=== PATIENT | female | born 1990 | race Two or more races ===

== ENCOUNTER 2017-11-13 01:38 | Inpatient (IN) | payer OTHER ==
[~2017-11-13] VITALS: Ht 157.5 cm; Wt 54.4 kg
== END 2017-12-01 13:34 | disposition home or self-care (01) | DRG 446 ==
LOC: ER 01:38 → SURH 10:38
PROC: BF37ZZZ Magnetic Resonance Imaging (MRI) of Pancreas (ICD-10-PCS; 2017-11-13)
PROC: BW40ZZZ Ultrasonography of Abdomen (ICD-10-PCS; 2017-11-13)
PROC: CF1C1ZZ Planar Nuclear Medicine Imaging of Hepatobiliary System, All using Technetium 99m (Tc-99m) (ICD-10-PCS; 2017-11-14)
PROC: BW40ZZZ Ultrasonography of Abdomen (ICD-10-PCS; 2017-11-17)
PROC: 0DB68ZX Excision of Stomach, Via Natural or Artificial Opening Endoscopic, Diagnostic (ICD-10-PCS; principal; 2017-11-18)
PROC: CF1C1ZZ Planar Nuclear Medicine Imaging of Hepatobiliary System, All using Technetium 99m (Tc-99m) (ICD-10-PCS; 2017-11-21)
PROC: BW25Y0Z Computerized Tomography (CT Scan) of Chest, Abdomen and Pelvis using Other Contrast, Unenhanced and Enhanced (ICD-10-PCS; 2017-11-24)
PROC: 0FC98ZZ Extirpation of Matter from Common Bile Duct, Via Natural or Artificial Opening Endoscopic (ICD-10-PCS; 2017-11-28)
PROC: 0F798ZZ Dilation of Common Bile Duct, Via Natural or Artificial Opening Endoscopic (ICD-10-PCS; 2017-11-28)
DX: K80.51 Calculus of bile duct without cholangitis or cholecystitis with obstruction (principal); K29.00 Acute gastritis without bleeding; E86.0 Dehydration

== ENCOUNTER → 2018-09-12 | Outpatient (CLI) | payer OTHER | END | disposition home or self-care (01) | LOC: PRENATAL 09:00 | DX: O99.89 Other specified diseases and conditions complicating pregnancy, childbirth and the puerperium (principal) ==

== ENCOUNTER 2018-11-21 13:03 | Outpatient (CLI) | payer OTHER | END 2018-11-21 14:00 | disposition home or self-care (01) | LOC: PRENATAL 13:03 | DX: O98.912 Unspecified maternal infectious and parasitic disease complicating pregnancy, second trimester (principal); O26.842 Uterine size-date discrepancy, second trimester ==

== ENCOUNTER 2018-12-27 13:34 | Inpatient (IN) | payer OTHER ==
[~2018-12-27] VITALS: Ht 157.5 cm; Wt 64.9 kg
[2018-12-27] MEDS ORDERED: IRON325 MG PO (16:54)
[2018-12-27] MEDS ORDERED: PRENATAL CAPLE1 EAC1 PO (16:54)
[2018-12-28] MEDS ORDERED: AMPICILLIN TRI500 MG PO (18:16)
== END 2018-12-28 19:14 | disposition home or self-care (01) | DRG 833 ==
LOC: LDR 13:34
PROVIDERS: ADMIT Obstetrics & Gynecology
PROC: BY4FZZZ Ultrasonography of Third Trimester, Single Fetus (ICD-10-PCS; principal; 2018-12-27)
PROC: 4A1HXCZ Monitoring of Products of Conception, Cardiac Rate, External Approach (ICD-10-PCS; 2018-12-27)
DX: O26.843 Uterine size-date discrepancy, third trimester (principal); O60.03 Preterm labor without delivery, third trimester; O36.8130 Decreased fetal movements, third trimester, not applicable or unspecified; O23.33 Infections of other parts of urinary tract in pregnancy, third trimester

== ENCOUNTER 2019-01-05 21:33 | Inpatient (IN) | payer OTHER ==
[~2019-01-05] VITALS: Ht 157.5 cm; Wt 63.5 kg
[~2019-01-05 21:33] MED LIST: AMPICILLIN TRI500 MG PO; IRON325 MG PO; PRENATAL CAPLE1 EAC1 PO
== END 2019-01-08 13:39 | disposition home or self-care (01) | DRG 768 ==
LOC: OB/GYN 21:33 → LDR 21:33 → OB/GYN 01-06 01:34
PROVIDERS: ADMIT Obstetrics & Gynecology
PROC: 4A1HXCZ Monitoring of Products of Conception, Cardiac Rate, External Approach (ICD-10-PCS; 2019-01-05)
PROC: 10E0XZZ Delivery of Products of Conception, External Approach (ICD-10-PCS; principal; 2019-01-06)
PROC: 0DQR0ZZ Repair Anal Sphincter, Open Approach (ICD-10-PCS; 2019-01-06)
DX: O70.21 Third degree perineal laceration during delivery, IIIa (principal); Z37.0 Single live birth; Z3A.37 37 weeks gestation of pregnancy

== ENCOUNTER 2022-06-11 09:14 | Outpatient (CLI) | payer OTHER | END 2022-06-11 10:14 | disposition home or self-care (01) | LOC: PRENATAL 09:14 | PROVIDERS: ATTEND Obstetrics & Gynecology Maternal & Fetal Medicine | DX: O36.80X0 Pregnancy with inconclusive fetal viability, not applicable or unspecified (principal); Z3A.12 12 weeks gestation of pregnancy ==

== ENCOUNTER 2022-08-09 13:15 | Outpatient (CLI) | payer OTHER | END 2022-08-09 14:43 | disposition home or self-care (01) | LOC: PRENATAL 13:15 | PROVIDERS: ATTEND Obstetrics & Gynecology Maternal & Fetal Medicine | DX: O35.9XX0 Maternal care for (suspected) fetal abnormality and damage, unspecified, not applicable or unspecified (principal); O35.3XX0 Maternal care for (suspected) damage to fetus from viral disease in mother, not applicable or unspecified ==

== ENCOUNTER 2022-11-04 10:28 | Outpatient (CLI) | payer OTHER | END 2022-11-04 12:03 | disposition home or self-care (01) | LOC: PRENATAL 10:28 | PROVIDERS: ATTEND Obstetrics & Gynecology Maternal & Fetal Medicine | DX: O26.849 Uterine size-date discrepancy, unspecified trimester (principal); O36.8199 Decreased fetal movements, unspecified trimester, other fetus; Z3A.33 33 weeks gestation of pregnancy ==

== ENCOUNTER 2022-12-14 19:00 | Outpatient (CLI) | payer OTHER | END 2022-12-14 20:14 | disposition still patient (30) | LOC: NST 19:00 | PROVIDERS: ATTEND Obstetrics & Gynecology | DX: O26.893 Other specified pregnancy related conditions, third trimester (principal); Z3A.38 38 weeks gestation of pregnancy ==

== ENCOUNTER 2022-12-14 20:26 | Inpatient (IN) | payer OTHER ==
[~2022-12-14] VITALS: Ht 157.5 cm; Wt 72.6 kg
[2022-12-14 20:47] LABS: HEMATOCRIT 35.4 % (36.0-45.00); MEAN CELL VOLUME 86.2 fL (80.00-100.00); MEAN CORPUSCULAR HEMOGLOBIN 29.2 pg (27.00-32.0); MEAN CORPUSCULAR HGB CONC 33.9 g/dl (32.0-36.0); PLATELET COUNT 341 K/uL (150-450); RED CELL DISTRIBUTION WIDTH 15.3 % (11.5-14.5); URINE APPEARANCE Clear; URINE BILIRRUBIN Negative (NEGATIVE); URINE BLOOD Trace; URINE COLOR Yellow; URINE GLUCOSE Negative (NEGATIVE); URINE LEUKOCYTE Negative; URINE NITRATE Negative; URINE PROTEIN Negative (NEGATIVE)
[2022-12-14 20:48] LABS: URINE EPITHELIAL CELLS 2.7 uL (0.0-38.8); URINE WBC 6.7 uL (0.0-23.2)
[2022-12-14 20:59] LABS: URINE RBC 0.8 uL (0.0-20.8)
[2022-12-14 21:05] LABS: INR 0.95; PARTIAL THROMBOPLASTIN TIME 27.8 SECONDS (22.0-34.0)
[2022-12-14 21:10] LABS: ALBUMIN 2.7 gm/dL (3.4-5.0); BILIRUBIN TOTAL 0.25 mg/dL (0.3-1.2); CALCIUM 8.9 mg/dL (8.5-10.1); CREATININE SERUM 0.66 mg/dL (0.55-1.02); GFR 104.46; GLOBULINA 3.6 G/DL (2.4-3.5); POTASSIUM 4.32 mEq/L (3.5-5.1); TOTAL PROTEIN 6.3 gm/dL (6.4-8.2)
[2022-12-15 11:51] LABS: HEMATOCRIT 33.2 % (36.0-45.00); HEMOGLOBIN 11.4 g/dL (12.0-15.00); MEAN CELL VOLUME 85.1 fL (80.00-100.00); MEAN CORPUSCULAR HEMOGLOBIN 29.3 pg (27.00-32.0); MEAN CORPUSCULAR HGB CONC 34.5 g/dl (32.0-36.0); PLATELET COUNT 300 K/uL (150-450)
== END 2022-12-16 12:49 | disposition home or self-care (01) | DRG 807 ==
LOC: LDR 20:26 → OB/GYN 20:26 → LDR 12-23 14:52
PROVIDERS: Obstetrics & Gynecology; ADMIT Student in an Organized Health Care Education/Training Program; ATTEND Student in an Organized Health Care Education/Training Program
PROC: 10E0XZZ Delivery of Products of Conception, External Approach (ICD-10-PCS; principal; 2022-12-14)
PROC: 0HQ9XZZ Repair Perineum Skin, External Approach (ICD-10-PCS; 2022-12-14)
PROC: 4A1HXCZ Monitoring of Products of Conception, Cardiac Rate, External Approach (ICD-10-PCS; 2022-12-14)
DX: O70.0 First degree perineal laceration during delivery (principal); Z37.0 Single live birth; Z3A.38 38 weeks gestation of pregnancy; Z20.822 Contact with and (suspected) exposure to COVID-19

== ENCOUNTER 2023-05-23 08:45 | Emergency (ER) | payer OTHER ==
[~2023-05-23] VITALS: Ht 157.5 cm; Wt 55.3 kg
[2023-05-23 10:17] LABS: HEMATOCRIT 41.6 % (36.0-45.00); HEMOGLOBIN 14.5 g/dL (12.0-15.00); MEAN CELL VOLUME 89.1 fL (80.00-100.00); MEAN CORPUSCULAR HEMOGLOBIN 31.1 pg (27.00-32.0); MEAN CORPUSCULAR HGB CONC 34.9 g/dl (32.0-36.0); PLATELET COUNT 358 K/uL (150-450); RED BLOOD COUNT 4.66 M/uL (4.00-6.00); RED CELL DISTRIBUTION WIDTH 13.2 % (11.5-14.5)
[2023-05-23] MEDS ORDERED: TUSNEL LIQUID178 ML PO (11:50)
[2023-05-23] MEDS ORDERED: ZITHROMAX500 MG PO (11:50)
== END 2023-05-23 12:18 | disposition home or self-care (01) ==
LOC: ER 08:45
PROVIDERS: General Practice
DX: R09.81 Nasal congestion (principal)

== ENCOUNTER 2023-08-30 05:46 | Day surgery (SDC) | payer OTHER ==
[2023-08-26 12:42] LABS: INR 1.09; PARTIAL THROMBOPLASTIN TIME 34.1 SECONDS (22.0-34.0); PROTHROMBIN TIME 11.4 SECONDS (9.0-11.5)
[~2023-08-30 05:46] MED LIST changes: +TUSNEL LIQUID178 ML PO; +ZITHROMAX500 MG PO
[2023-08-30] MEDS ORDERED: CEFAZOLIN SODIUM 1,000 MG VIAL IV SCH (11:45)
[2023-08-30] MEDS ORDERED: SUGAMMADEX SODIUM 200 MG/2 ML VIAL IV ONE ×2 (12:30→12:45)
[2023-08-30] MEDS ORDERED: MORPHINE SULFATE 4 MG/ML VIAL IV PRN (12:30)
[2023-08-30] MEDS ORDERED: ONDANSETRON HCL 2 MG/ML VIAL IV PRN (12:30)
== END 2023-08-30 14:45 | disposition home or self-care (01) ==
LOC: CIR.AMB 05:46
PROVIDERS: ATTEND Student in an Organized Health Care Education/Training Program
DX: N83.8 Other noninflammatory disorders of ovary, fallopian tube and broad ligament (principal); Z30.2 Encounter for sterilization; Z64.1 Problems related to multiparity